=== PATIENT | female | born 1945 | race Caucasian/White ===

== ENCOUNTER 2021-02-03 09:19 | Inpatient (IN) | payer MEDICARE ==
[~2021-02-03 09:19] MED LIST: ALPRAZOLAM1 MG PO; AMOXICILLIN875 MG PO; ANTIVERT25 MG PO; ASCORBIC ACID500 MG PO; ASPIRIN CHEWABL81 MG PO; BACTRIM DS TAB1 EACH PO; CARAFATE1 GM PO; CATAPRES0.1 MG PO; CEFDINIR300 MG PO; CENTRUM SILVER1 EAC1 PO; COLACE100 MG PO; DIFLUCAN150 MG PO; DIGITEK125 MCG PO; FIBER TABS625 MG PO; FIBER625 MG PO; FOSAMAX70 MG PO; FUROSEMIDE 40MG40 MG PO; HYDROCODONE-APA1 TAB PO; LINZESS290 MCG PO; LIPITOR40 M1 PO; LOPRESSOR50 MG PO; MACROBID100 MG PO; MAG-OXIDE 400M400 MG PO; MEDROL 4MG DOSEP4 MG PO; METFORMIN HCL500 MG PO; MILK OF MA2400 MG/10 PO; NEURONTIN100 MG PO; NITROQUIK SL0.4 MG SL; NORCO 5-325 TA1 EACH PO; NORVASC5 MG PO; PHENERGAN25 M1 PO; PRILOSEC20 MG PO; PROBIOTIC1 EAC2 PO; PROTONIX 40MG T40 MG PO; SAVELLA50 MG PO; TAMOXIFEN CITRA20 MG PO; TRIMETHOPRIM100 MG PO; VITAMIN B-121000 MC1 PO; VOLTAREN **OUT50 MG PO; XANAX0.5 MG PO; ZANTAC150 MG PO; ZANTAC300 MG PO; ZOFRAN4 MG PO; ZOFRAN4 MG SL
[2021-02-03 11:10] LABS: BASOPHIL 0.4 % (0-2); HCT 29.1 % (37.0-47.0); HGB 8.8 g/dl (12.5-16.0); LYMPHOCYTE 11.1 % (15-48); MCH 28.8 pg (25.0-31.0); MCHC 30.2 g/dL (32.0-36.0); MCV 95.1 fL (78.0-100.0); MONOCYTE 7.6 % (0-12); MPV 9.2 fL (6.0-9.5); NEUTROPHIL 77.9 % (41-80); NRBC 0; PLT 359 K/uL (150-400); RBC 3.06 M/uL (4.20-5.40); RDW 17.8 % (11.5-14.0)
[2021-02-03 11:22] LABS: ALBUMIN 2.6 g/dL (3.4-5.0); BILIRUBIN - TOTAL 0.2 mg/dL (0.2-1.0); BUN/CREAT RATIO (CALC) 25.6 RATIO; CREATININE 1.99 mg/dL (0.51-0.95); GLOBULIN (CALCULATION) 3.8 g/dL; POTASSIUM 5.4 mmol/L (3.5-5.1); TOTAL PROTEIN 6.4 g/dL (6.4-8.2)
[2021-02-03 11:26] LABS: LACTIC ACID 0.7 mmol/L (0.4-1.9)
[2021-02-03 11:53] LABS: BILIRUBIN NEGATIVE (NEGATIVE); BLOOD 3+ Ery/uL (NEGATIVE); CLARITY TURBID (CLEAR); COLOR YELLOW (YELLOW); GLUCOSE (U) NORMAL (NORMAL); LEUKOCYTES 3+ Leu/uL (NEGATIVE); NITRITE NEGATIVE (NEGATIVE); PROTEIN 2+ mg/dL (NEGATIVE); UROBILINOGEN 0.2 mg/dL (0.2-1.0)
[2021-02-03 11:58] LABS: BACTERIA 1+; URINARY WBC TNTC
[2021-02-03 13:22] LABS: CORONAVIRUS 2019 SARS-COV-2 NEGATIVE (NEGATIVE); INFLUENZA A NAA NEGATIVE (NEGATIVE)
[2021-02-03] MEDS ORDERED: LINZESS290 MCG PO ×2 (15:46→16:10)
[2021-02-03] MEDS ORDERED: LOPRESSOR50 MG PO (15:47)
[2021-02-03] MEDS ORDERED: LASIX20 MG PO (15:48)
[2021-02-03] MEDS ORDERED: DIGITEK125 MCG PO (15:49)
[2021-02-03] MEDS ORDERED: NEURONTIN100 MG PO (15:52)
[2021-02-03] MEDS ORDERED: XANAX0.5 MG PO (15:53)
[2021-02-03] MEDS ORDERED: PEPCID AC20 MG PO (15:53)
[2021-02-03] MEDS ORDERED: ALLEGRA ALLERG180 MG PO (15:54)
[2021-02-03] MEDS ORDERED: LIPITOR40 MG PO (15:55)
[2021-02-03] MEDS ORDERED: CEPHALEXIN250 M1 PO (15:59)
[2021-02-03] MEDS ORDERED: HYDROCODON-ACE1 EAC2 PO (16:01)
[2021-02-03] MEDS ORDERED: PREMARIN V45 GM/TUBE VG (16:03)
[2021-02-03] MEDS ORDERED: FOSAMAX70 MG PO (16:05)
[2021-02-03] MEDS ORDERED: TAMOXIFEN CITRA20 MG PO (16:06)
[2021-02-03] MEDS ORDERED: DIFLUCAN 100MG100 MG PO (16:07)
[2021-02-03] MEDS ORDERED: GLUCOTROL5 MG PO (16:08)
[2021-02-03] MEDS ORDERED: [UNRECOGNIZED DRUG - OTHER] PO (16:11)
--- NOTE | 2021-02-03 16:51 | NUR ---
02/03/21 [facility] is current and was notified of admission via [facility].
[2021-02-04 05:46] LABS: BASOPHIL 0.4 % (0-2); EOSINOPHIL 0.7 % (0-7); HCT 27.2 % (37.0-47.0); HGB 8.1 g/dl (12.5-16.0); LYMPHOCYTE 9.9 % (15-48); MCH 28.3 pg (25.0-31.0); MCHC 29.8 g/dL (32.0-36.0); MCV 95.1 fL (78.0-100.0); MONOCYTE 9.5 % (0-12); MPV 9.1 fL (6.0-9.5); NRBC 0; PLT 321 K/uL (150-400); RBC 2.86 M/uL (4.20-5.40); RDW 17.8 % (11.5-14.0); WBC 9.5 K/uL (4.0-10.5)
[2021-02-04 06:03] LABS: BUN/CREAT RATIO (CALC) 24.2 RATIO; CREATININE 1.78 mg/dL (0.51-0.95); POTASSIUM 4.6 mmol/L (3.5-5.1)
--- NOTE | 2021-02-04 10:26 | NUR ---
Spoke with patient and her . She states is current with [facility] home [facility]. Her will provide transportation home at discharge.
[2021-02-05 06:00] LABS: BASOPHIL 0.8 % (0-2); HGB 9.6 g/dl (12.5-16.0); MCH 28.4 pg (25.0-31.0); MCHC 27.4 g/dL (32.0-36.0); MCV 103.6 fL (78.0-100.0); MPV 9.4 fL (6.0-9.5); NEUTROPHIL 73.8 % (41-80); NRBC 0; PLT 284 K/uL (150-400); RBC 3.38 M/uL (4.20-5.40); RDW 17.9 % (11.5-14.0); WBC 8.9 K/uL (4.0-10.5)
[2021-02-05 08:06] LABS: BUN/CREAT RATIO (CALC) 20.6 RATIO; CREATININE 1.89 mg/dL (0.51-0.95); FOLIC ACID (SERUM) 16.1 ng/mL (8.6-58.9); POTASSIUM 4.4 mmol/L (3.5-5.1)
[2021-02-05] MEDS ORDERED: ZYVOX600 MG PO (13:20)
[2021-02-05] MEDS ORDERED: DIFLUCAN 100MG100 MG PO (13:22)
[2021-02-05] MEDS ORDERED: ISOSORBIDE MONO30 MG PO (13:22)
--- NOTE | 2021-02-05 13:29 | NUR ---
PT NEEDS ZYVOX 600MG 2X A DAY FOR TEN DAYS; CALLED MALE PHARMACIST AT [facility] HE REPORTS THEY ARE "TOO BUSY WITH COVID SHOTS: I NEED TO ESCRIPT IT AND CHECK BACK; DR. JULIO NOTIFIED
[2021-02-06 07:55] LABS: BASOPHIL 0.5 % (0-2); HCT 27.7 % (37.0-47.0); LYMPHOCYTE 12.5 % (15-48); MCH 28.3 pg (25.0-31.0); MCHC 28.9 g/dL (32.0-36.0); MCV 97.9 fL (78.0-100.0); MONOCYTE 11.6 % (0-12); MPV 9.1 fL (6.0-9.5); NEUTROPHIL 71.7 % (41-80); NRBC 0; PLT 340 K/uL (150-400); RBC 2.83 M/uL (4.20-5.40); RDW 17.7 % (11.5-14.0); WBC 10.3 K/uL (4.0-10.5)
[2021-02-06] MEDS ORDERED: PYRIDIUM PO (08:02)
[2021-02-06] MEDS ORDERED: NORVASC5 MG PO (08:02)
[2021-02-06] MEDS ORDERED: PYRIDIUM100 MG PO (08:03)
[2021-02-06 08:20] LABS: BUN/CREAT RATIO (CALC) 17.7 RATIO; CREATININE 1.81 mg/dL (0.51-0.95); POTASSIUM 4.5 mmol/L (3.5-5.1)
--- NOTE | 2021-02-06 10:11 | NUR ---
SPOKE TO PT SPOUSE ABOUT ZYVOXX COST OF $40 DOLLARS AND SOME CHANGE HE IS OK WITH THAT JIANG
== END 2021-02-06 14:00 | disposition home health service (06) | DRG 689 ==
LOC: FER 09:19 → FMS 12:11
PROVIDERS: Emergency Medicine; ADMIT Allergy & Immunology Allergy
DX: N39.0 Urinary tract infection, site not specified (principal); G93.41 Metabolic encephalopathy; N17.9 Acute kidney failure, unspecified; I13.0 Hypertensive heart and chronic kidney disease with heart failure and stage 1 through stage 4 chronic kidney disease, or unspecified chronic kidney disease; I50.32 Chronic diastolic (congestive) heart failure; Z20.822 Contact with and (suspected) exposure to COVID-19; E11.22 Type 2 diabetes mellitus with diabetic chronic kidney disease; N18.9 Chronic kidney disease, unspecified; B95.2 Enterococcus as the cause of diseases classified elsewhere; Z87.440 Personal history of urinary (tract) infections; E78.5 Hyperlipidemia, unspecified; I25.10 Atherosclerotic heart disease of native coronary artery without angina pectoris; Z95.5 Presence of coronary angioplasty implant and graft; Z85.3 Personal history of malignant neoplasm of breast; F41.9 Anxiety disorder, unspecified; K21.9 Gastro-esophageal reflux disease without esophagitis; K59.09 Other constipation; G89.29 Other chronic pain; Z90.49 Acquired absence of other specified parts of digestive tract; Z90.710 Acquired absence of both cervix and uterus; Z98.890 Other specified postprocedural states; Z90.11 Acquired absence of right breast and nipple; M81.0 Age-related osteoporosis without current pathological fracture; E53.8 Deficiency of other specified B group vitamins; Z79.82 Long term (current) use of aspirin; Z79.84 Long term (current) use of oral hypoglycemic drugs; Z79.899 Other long term (current) drug therapy; Z88.1 Allergy status to other antibiotic agents; Z88.8 Allergy status to other drugs, medicaments and biological substances; E86.0 Dehydration; E86.9 Volume depletion, unspecified
CPT/HCPCS: 36415; 71045; 80048; 80053; 81001; 82150; 82728; 82746; 83540; 83605; 84145; 84484; 85025; 87040; 87076; 87088; 87186; 93005; 97110; 97116; 97162; 97166; 97530-GP; 97535; J0360; J0696; J1644; J2020; J7040; U0002